=== PATIENT | female | born 1955 | race Caucasian/White ===

== ENCOUNTER 2022-03-06 05:38 | Day surgery (SDC) | payer BC ==
[2022-03-04 13:07] VITALS: BMI 24.7
[~2022-03-06 05:38] MED LIST: Pre Op ABX Message 1 EACH MISC MISCELLANE ONE
[2022-03-06] MEDS ORDERED: LACTATED RINGERS 1,000 ML IV SCH (06:03)
[2022-03-06] MEDS ORDERED: DEXAMETHASONE SOD PHOSPHATE 4 MG/ML 1 ML VIAL IV ONE (06:03)
[2022-03-06] MEDS ORDERED: LIDOCAINE 1% (10MG/ML) FOR IV START INTRADERMA PRN (06:03)
[2022-03-06] MEDS ORDERED: HYDROmorphone 0.5 MG/0.5 ML SYRINGE IVP PRN (07:00)
[2022-03-06] MEDS ORDERED: ONDANSETRON 4 MG/2 ML VIAL IVP PRN (07:00)
[2022-03-06] MEDS ORDERED: fentaNYL (PF) 50 MCG/ML 2 ML AMP IVP ONE (07:12)
[2022-03-06] MEDS ORDERED: MIDAZOLAM 2 MG/2 ML VIAL IVP ONE (07:12)
[2022-03-06] MEDS ORDERED: fentaNYL (PF) 50 MCG/ML 2 ML AMP ONE (07:20)
[2022-03-06] MEDS ORDERED: PROPOFOL 10 MG/ML 20 ML VIAL IV ONE (07:20)
[2022-03-06] MEDS ORDERED: LIDOCAINE 2% INJ 20 MG/ML (2 ML VIAL) ONE (07:20)
[2022-03-06] MEDS ORDERED: ROPIVACAINE 5 MG/ML 30 ML VIAL ONE (07:20)
[2022-03-06] MEDS ORDERED: MIDAZOLAM 2 MG/2 ML VIAL ONE (07:20)
[2022-03-06] MEDS ORDERED: SODIUM CHLORIDE 0.9% (PF) 10 ML VIAL ONE (07:20)
[2022-03-06 07:25] LABS: Calcium 9.2 mg/dL (8.4-10.2); Potassium 3.4 mmol/L (3.5-5.1)
[2022-03-06] MEDS ORDERED: ceFAZolin 1,000 MG in SODIUM CHLORIDE 0.9% 1,000 ML IRRIGATION ONE (07:30)
--- NOTE | 2022-03-06 09:30 | P.OP ---
Date of Procedure: 03/06/22 Preoperative Diagnosis: Hallux valgus left foot Postoperative Diagnosis: Same Procedure(s) Performed: Lapidus bunionectomy left foot Implants: Lapiplasty plates and screws Anesthesia: CARLOTA Surgeon: Dario Torres Estimated Blood Loss (ml): 2 Pathology: none sent Condition: stable Disposition: PACU Description of Procedure: Prior to the patient being brought to the operating room, anesthesia administered a nerve block and left lower extremity. The patient was brought into the operative room and placed on table in the supine position. Timeout was taken to confirm correct patient identifiers, correct procedure, and correct site of surgery. When all staff in the room were in agreement with the timeout the patient was induced placed under general anesthesia. A well-padded tourniquet was placed on the ankle. Then 20 mL 0.25% Marcaine was injected as a ankle block. The foot was then prepped and draped in usual manner. The foot was exsanguinated and the tourniquet inflated 250 mmHg. Attention was directed over the medial aspect of the first metatarsal phalangeal joint where a linear incision was made between the neurovascular structures. The incision was deepened down to the subcutaneous layer careful to identify, avoid, and retract any neurovascular structures and cauterize any bleeding vessels. Dissection was then carried down to the joint capsule where 2 semi- elliptical converging incisions were made along the medial aspect of the first metatarsal phalangeal joint capsule. The interposing piece of capsule was removed from the surgical field and the capsule reflected from medial aspect of first metatarsal head. The sesamoid apparatus was distracted plantarly in the lateral sesamoid collateral ligament was transected and a lateral capsulotomy performed. Then attention was directed to the dorsal aspect of the foot over th e first tarsometatarsal joint. A linear incision was made medial to the extensor hallucis longus tendon with the center of the incision over the first tarsometatarsal joint. The incision was deepened down to the subcutaneous tissue careful to identify, avoid, and retract any neurovascular structures and cauterize any bleeding vessels. Blunt dissection was then carried down to the joint capsule which was incised medial to the extensor hallucis longus tendon area and subperiosteal dissection was performed to reflect the soft tissue away from the joint. An osteotome was used to free the soft tissue from around the joint surfaces to help mobilize the frontal plane correction. A guidewire and placed through the base of the first metatarsal from medial to lateral. This is was used as a joystick for the frontal plane rotation correction. The small fulcrum was placed at the base of the first metatarsal, the joint seeker was also placed at the first tarsometatarsal joint as far lateral as possible. And then the reduction clamp was applied around the first metatarsal and lateral to the second metatarsal. While holding the frontal plane correction the reduction clamp was reduced to close the intermetatarsal angle. Once the amount of correction was acceptable under fluoroscopy, a wire was placed through the reduction clamp to lock the correction in place. The cutting guide was then placed over the joint seeker then held in place with 2 straight pins and then one angled pin so it did not slide dorsally. The bone cuts were then made through the cutting jig. Cutting jig was removed, leaving the [address], as was the fulcrum. The compression/distraction device was then placed over the remaining wires and then opened to allow access to the cut surfaces of bone. Both cut surfaces were removed fully with no remaining pieces. The wound was then irrigated thoroughly with antibiotic saline. Then a 2.0 mm drill bit was used to aggressively fenestrate the conjoining surfaces of the arthrodesis site. The fulcrum was reinserted at the lateral base of the first metatarsal . Then the distraction device was reversed for compression and while holding the great toe dorsiflexed the arthrodesis site was compressed fully. Fluoroscopy was used to check the alignment which showed full compression at the arthrodesis site with maintained correction of the int ermetatarsal angle and anatomic alignment of the sesamoids. Threaded olive wire was then inserted across the arthrodesis site for temporary fixation. The medial plate was applied first it was aligned under fluoroscopy and then temporarily fixated. The 2 screw holes closest to the arthrodesis site were filled with the compression/locking screws until they were fully seated. The outer 2 holes were done with straight locking screws. The dorsal straight plate was then positioned under fluoroscopy until correct and then temporarily fixated. The 2 holes closest to the arthrodesis site were filled with the compression/locking screw and the outer holes with the straight locking screws. All extraneous instrumentation was removed and then a final fluoroscopic imaging showed full correction of the intermetatarsal angle, proper placement of hardware, no gapping at the arthrodesis, and the sesamoids anatomically aligned. All wounds were thoroughly irrigated with antibiotic saline. Capsular closure was done with 0 Vicryl in both incisions. All incisions were closed subcutaneously with 4-0 Monocryl. The large dorsal and medial incisions were closed with 3-0 Stratafix in a running subcuticular manner for skin. Dermal glue was applied to all the incisions and allowed to dry. Steri-Strips are then placed across incision and covered with an Arthrex jumpstart dressing. A bulky dry dressings applied to foot. The tourniquet was released capillary refill return to all digits on the foot. The patient then placed in a well-padded, well molded posterior mold/sugar tong splint. The foot was held in neutral position as it dried. Once dry the patient was reversed from general anesthesia and taken recovery with vital signs stable.
[2022-03-06 09:32] VITALS: TEMP 97.5
--- NOTE | 2022-03-06 09:43 | P.ANPRN ---
Procedure Note - Anesthesia - Nerve Block Performed Left Adductor Canal Time Out Performed: Yes (07:11) Date of Procedure: 03/06/22 Procedure Start Time: Procedure Stop Time: : Location of Patient: PreOp Indication: Acute Post-Operative Pain, Requested by Surgeon (Dr Torres) Sedation Type: Sedate with meaningful contact maintained Preparation: Sterile Prep Position: Supine Catheter: None Needle Types: Pajunk Needle Gauge: 21 Ultrasound used to visualize needle placement: Yes Ultrasound used to observe medication spread: Yes Injectate: 0.5% Ropivacaine (see comment for volume) (15cc + 5 cc PF Normal saline) Blood Aspirated: No Pain Paresthesia on Injection Noted: No Resistance on Injection: Normal Image Stored and Saved: Yes Events: Uneventful and Well Tolerated
--- NOTE | 2022-03-06 09:45 | P.ANPRN ---
Procedure Note - Anesthesia - Nerve Block Performed Left Popliteal Time Out Performed: Yes Date of Procedure: 03/06/22 Procedure Start Time: : Procedure Stop Time: :29 Location of Patient: PreOp Indication: Acute Post-Operative Pain, Requested by Surgeon Sedation Type: Sedate with meaningful contact maintained Preparation: Sterile Prep Position: Right Lateral Catheter: None Needle Types: Pajunk Needle Gauge: 21 Ultrasound used to visualize needle placement: Yes Ultrasound used to observe medication spread: Yes Injectate: 0.5% Ropivacaine (see comment for volume) (15cc + 5cc PF Normal saline) Blood Aspirated: No Pain Paresthesia on Injection Noted: No Resistance on Injection: Normal Image Stored and Saved: Yes Events: Uneventful and Well Tolerated
[2022-03-06 10:16] VITALS: RESP 16
[2022-03-06 10:29] VITALS: BP 138/75; PULSE 69
== END 2022-03-06 11:02 | disposition home or self-care (01) ==
LOC: OR 05:38
PROVIDERS: ATTEND Podiatrist
DX: M20.12 Hallux valgus (acquired), left foot (principal); G89.18 Other acute postprocedural pain
CPT/HCPCS: 28297; 20680; 64447; 64445; 76942; 80048; C1713; J2250; J1100; J0690 ×2; J2405; J3010; J2795; J2704; J1170; J2001

== ENCOUNTER 2022-07-03 06:54 | Day surgery (SDC) | payer BC ==
[~2022-07-03 06:54] MED LIST changes: +DEXAMETHASONE SOD PHOSPHATE 4 MG/ML 1 ML VIAL IV ONE; +LACTATED RINGERS 1,000 ML IV SCH; +MIDAZOLAM 2 MG/2 ML VIAL IV PRN; +ONDANSETRON 4 MG/2 ML VIAL IVP ONE; +SCOPOLAMINE 1 MG/72 HR PATCH TRANSDERM ONE
[2022-07-03] MEDS ORDERED: DEXAMETHASONE SOD PHOSPHATE 4 MG/ML 1 ML VIAL IVP ONE (08:03)
[2022-07-03] MEDS ORDERED: ONDANSETRON 4 MG/2 ML VIAL IVP ONE (08:03)
[2022-07-03] MEDS ORDERED: MIDAZOLAM 2 MG/2 ML VIAL IVP ONE (08:19)
[2022-07-03] MEDS ORDERED: fentaNYL (PF) 50 MCG/ML 2 ML AMP IVP ONE (08:19)
[2022-07-03] MEDS ORDERED: LIDOCAINE 2% INJ 20 MG/ML (2 ML VIAL) ONE (09:11)
[2022-07-03] MEDS ORDERED: ROPIVACAINE 5 MG/ML 30 ML VIAL ONE (09:11)
[2022-07-03] MEDS ORDERED: PROPOFOL 10 MG/ML 20 ML VIAL IV ONE (09:11)
[2022-07-03] MEDS ORDERED: SODIUM CHLORIDE 0.9% (PF) 10 ML VIAL ONE (09:11)
[2022-07-03] MEDS ORDERED: ePHEDrine 50 MG/ML 1 ML VIAL ONE (09:11)
--- NOTE | 2022-07-03 09:13 | P.ANPRN ---
Procedure Note - Anesthesia - Nerve Block Performed Right Adductor Canal Single Time Out Performed: Yes (818) Date of Procedure: 07/03/22 Procedure Start Time: Procedure Stop Time: Location of Patient: PreOp Indication: Acute Post-Operative Pain, Requested by Surgeon Specifically requested for management of pain by DrTimothy: Dario Torres Sedation Type: Sedate with meaningful contact maintained Preparation: Sterile Prep Position: Supine Catheter: None Needle Types: Pajunk Needle Gauge: 21 Ultrasound used to visualize needle placement: Yes Ultrasound used to observe medication spread: Yes Injectate: 0.5% Ropivacaine (see comment for volume) (15cc+ 15cc nacl pf) Blood Aspirated: No Pain Paresthesia on Injection Noted: No Resistance on Injection: Normal Image Stored and Saved: Yes Events: Uneventful and Well Tolerated
--- NOTE | 2022-07-03 09:13 | P.ANPRN ---
Procedure Note - Anesthesia - Nerve Block Performed Right Popliteal Single Time Out Performed: Yes (818) Date of Procedure: 07/03/22 Procedure Start Time: Procedure Stop Time: Location of Patient: PreOp Indication: Acute Post-Operative Pain, Requested by Surgeon Specifically requested for management of pain by DrTimothy: Dario Torres Sedation Type: Sedate with meaningful contact maintained Preparation: Sterile Prep Position: Supine Catheter: None Needle Types: Pajunk Needle Gauge: 21 Ultrasound used to visualize needle placement: Yes Ultrasound used to observe medication spread: Yes Injectate: 0.5% Ropivacaine (see comment for volume) (15cc + 15cc nacl) Blood Aspirated: No Pain Paresthesia on Injection Noted: No Resistance on Injection: Normal Image Stored and Saved: Yes Events: Uneventful and Well Tolerated
[2022-07-03] MEDS ORDERED: SODIUM CHLORIDE 0.9% 100 ML with ceFAZolin 2,000 MG IV ONE ×2 (09:15)
--- NOTE | 2022-07-03 10:52 | P.OP ---
Date of Procedure: 07/03/22 Preoperative Diagnosis: Hallux valgus right foot Postoperative Diagnosis: Same Procedure(s) Performed: Lapidus bunionectomy right foot Implants: Lapiplasty plate and screws Anesthesia: GETA Estimated Blood Loss (ml): 2 Pathology: none sent Condition: stable Disposition: PACU Description of Procedure: Prior to the patient being brought to the operating room, anesthesia administered a nerve block on the right lower extremity. Then the patient was brought into the operative room and placed on table in the supine position. Timeout was taken to confirm correct patient identifiers, correct procedure, and correct site of surgery. When all staff in the room were in agreement with the timeout the patient was induced placed under general anesthesia. A well-padded tourniquet was placed on the ankle. The foot was exsanguinated and the tourniquet inflated 250 mmHg. Attention was directed over the medial aspect of the first metatarsal phalangeal joint where a linear incision was made between the neurovascular structures. The incision was deepened down to the subcutaneous layer careful to identify, avoid, and retract any neurovascular structures and cauterize any bleeding vessels. Dissection was then carried down to the joint capsule where 2 semi- elliptical converging incisions were made along the medial aspect of the first metatarsal phalangeal joint capsule. The interposing piece of capsule was removed from the surgical field and the capsule reflected from medial aspect of first metatarsal head. The sesamoid apparatus was distracted plantarly in the lateral sesamoid collateral ligament was transected and a lateral capsulotomy performed. Then attention was directed to the dorsal aspect of the foot over the first tarsometatarsal joint. A linear incision was made medial to the extensor hallucis longus tendon with the center of the incision over the first tarsometatarsal joint. The incision was deepened down to the subcutaneous tissue careful to identify, avoid, and retract any neurovascular structures and cauterize any bleeding vessels. Blunt dissection was then carried down to the joint capsule which was incised medial to the extensor hallucis longus tendon area and subperiosteal dissection was performed to reflect the soft tissue away from the joint. An osteotome was used to free the soft tissue from around the joint surfaces to help mobilize the frontal plane correction. A guidewire and placed through the base of the first metatarsal from medial to lateral. This is was used as a joystick for the frontal plane rotation correction. The small fulcrum was placed at the base of the first metatarsal, the joint seeker was also placed at the first tarsometatarsal joint as far lateral as possible. And then the reduction clamp was applied around the first metatarsal and lateral to the second metatarsal. While holding the frontal plane correction the reduction clamp was reduced to close the intermetatarsal angle. Once the amount of correction was acceptable under fluoroscopy, a wire was placed through the reduction clamp to lock the correction in place. The cutting guide was then placed over the joint seeker then held in place with 2 straight pins and then one angled pin so it did not slide dorsally. The bone cuts were then made through the cutting jig. Cutting jig was removed, leaving the [address], as was the fulcrum. The compression/distraction device was then placed over the remaining wires and then opened to allow access to the cut surfaces of bone. Both cut surfaces were removed fully with no remaining pieces. The wound was then irrigated thoroughly with antibiotic saline. Then a 2.0 mm drill bit was used to aggressively fenestrate the conjoining surfaces of the arthrodesis site. The fulcrum was reinserted at the lateral base of the first metatarsal . Then the distraction device was reversed for compression and while holding the great toe dorsiflexed the arthrodesis site was compressed fully. Fluoroscopy was used to check the alignment which showed full compression at the arthrodesis site with maintained correction of the intermetatarsal angle and anatomic alignment of the sesamoids. Threaded olive wire was then inserted across the arthrodesis site for temporary fixation. The medial plate was applied first it was aligned under fluoroscopy and then temporarily fixated. The 2 screw holes closest to the arthrodesis site were filled with the compression/locking screws until they were fully seated. The outer 2 holes were done with straight locking screws. The dorsal straight plate was then positioned under fluoroscopy until correct and then temporarily fixated. The 2 holes closest to the arthrodesis site were filled with the compression/locking screw and the outer holes with the straight locking screws. All extraneous instrumentation was removed and then a final fluoroscopic imaging showed full correction of the intermetatarsal angle, proper placement of hardware, no gapping at the arthrodesis, and the sesamoids anatomically aligned. Stress testing was also performed at the articulation between the medial and intermediate cuneiforms. There was no excessive gapping noted with stress. All wounds were thoroughly irrigated with antibiotic saline. Capsular closure was done with 0 Vicryl in both incisions. All incisions were closed subcutaneously with 4-0 Monocryl. The large dorsal and medial incisions were closed with 3-0 Stratafix in a running subcuticular manner for skin. Dermal glue was applied to all the incisions and allowed to dry. Steri-Strips are then placed across incision and covered with an Arthrex jumpstart dressing. A bulky dry dressings applied to foot. The tourniquet was released capillary refill return to all digits on the foot. The patient then placed in a well-padded, well molded posterior mold/sugar tong splint. The foot was held in neutral position as it dried. Once dry, the patient was reversed from general anesthesia and taken recovery with vital signs stable.
[2022-07-03] MEDS: HYDROmorphone 0.5 MG/0.5 ML SYRINGE IVP PRN ×2 (10:55→11:19)
[2022-07-03 10:59] VITALS: TEMP 97.3
[2022-07-03 11:48] VITALS: RESP 18
[2022-07-03 12:09] VITALS: BP 116/60; PULSE 70
== END 2022-07-03 12:35 | disposition home or self-care (01) ==
LOC: OR 06:54
PROVIDERS: ATTEND Podiatrist
DX: M20.11 Hallux valgus (acquired), right foot (principal); M20.12 Hallux valgus (acquired), left foot; G89.18 Other acute postprocedural pain; I10 Essential (primary) hypertension; E78.5 Hyperlipidemia, unspecified; Z79.899 Other long term (current) drug therapy; Z80.9 Family history of malignant neoplasm, unspecified; Z82.49 Family history of ischemic heart disease and other diseases of the circulatory system
CPT/HCPCS: 64447; 64445; 76942; 28292; C1713; J2250; J1100; J2405; J0690; J3010; J2795; J2704; J1170; J2001